=== PATIENT | female | born 1955 | race Caucasian/White ===

== ENCOUNTER 2016-09-25 14:08 | Emergency (ER) | payer BC ==
--- NOTE | 2016-09-25 14:17 | PDOC ---
[id number]: Right knee pain The patient is a 61 year old female with no pertinent past medical history other than a possible right knee arthroscopy, who presents to the emergency department with a complaint of right knee pain since yesterday afternoon. Patient was leaning into her vehicle to grab groceries when she felt her knee lock, followed by feeling and hearing a pop coming from her right knee. Patient was able to ambulate afterwards but states that there was pain with weight bearing and use of stairs. Patient reports that her knee had became swollen later that evening. Patient rested, elevated and iced her knee with some improvement to the swelling. Patient continues to endorse pain with range of motion and weight bearing. Pain is relieved with rest. Patient denies taking any medications for pain. Denies numbness or tingling in the lower right extremity. Denies other joint pains or injuries. Surgery: Hysterectomy for fibroids, Patient is not on any daily medications Denies allergies to medications PCP: Polo Brewer: Office: [facility]. Service: <Ramos Riley - Last Filed: 09/25/16 15:26> <Alvino Boyd - Last Filed: 09/25/16 16:08> - General Chief Complaint: Injury Stated Complaint: RT KNEE PAIN Time Seen by Provider: 09/25/16 14:17 Past History <Ramos Riley - Last Filed: 09/25/16 15:26> - Psycho/Social/Smoking Cessation Hx Suicidal Ideation: No Smoking History: Never smoked Hx Alcohol Use: (occasional) <Alvino Boyd - Last Filed: 09/25/16 16:08> - Past Medical History Allergies/Adverse Reactions: Allergies Allergy/AdvReac Type Severity Reaction Status Date / Time No Known Drug Allergies Allergy Verified 09/25/16 14:09 Home Medications: Ambulatory Orders NK [No Known Home Medication] 09/25/16 Review of Systems - Review of Systems Able to Perform ROS?: Yes Comments:: 09/25/16 15:17 CONSTITUTIONAL: Absent: Fever, Chills, Diaphoresis, Generalized Weakness, Malaise, Loss of Appetite HEENT: Absent: Rhinorrhea, Nasal Congestion, Throat Pain, Throat Swelling, Difficulty Swallowing, Mouth Swelling, Ear Pain, Eye Pain, Visual Changes CARDIOVASCULAR: Absent: Chest Pain, Syncope, Palpitations, Irregular Heart Rate, Lightheadedness , Peripheral Edema MUSCULOSKELETAL: Present: Right knee pain, right knee swelling Absent: Myalgia, Back pain, Neck Pain SKIN: Absent: Rash, Itching, Pallor Is the patient limited Tamazight proficient: No <Ramos Riley - Last Filed: 09/25/16 15:26> *Physical Exam - Vital Signs Last Vital Signs Temp Pulse Resp BP Pulse Ox 98.5 F 91 H 18 134/82 96 09/25/16 14:08 09/25/16 14:08 09/25/16 14:08 09/25/16 14:08 09/25/16 14:08 - Physical Exam Comments: 09/25/16 15:18 GENERAL: The patient is awake, alert, and fully oriented, in no acute distress. HEAD: Normal with no signs of trauma. EYES: Pupils equal, round and reactive to light, extraocular movements intact, sclera anicteric, conjunctiva clear. EXTREMITIES: Right knee: suprapatellar tenderness with mild local swelling Positive lateral tenderness. Patient was able to flex to 30 degrees, limited by pain. No ligament laxity x4 Remainder of extremities show normal range of motion, no edema. Sensation intact. Circulation intact. NEUROLOGICAL: Normal speech, normal gait. PSYCH: Normal mood, normal affect. SKIN: Warm, Dry, normal turgor, no rashes or lesions noted. <Ramos Riley - Last Filed: 09/25/16 15:26> - Vital Signs Last Vital Signs Temp Pulse Resp BP Pulse Ox 98.5 F 91 H 18 134/82 96 09/25/16 14:08 09/25/16 14:08 09/25/16 14:08 09/25/16 14:08 09/25/16 14:08 <Alvino Boyd - Last Filed: 09/25/16 16:08> ED Treatment Course - RADIOLOGY Radiology Studies Ordered: 09/25/16 15:18 RAD/KNEE 2 POS-RIGHT AP and lateral views reveal degenerative changes but no sign of fracture, subluxation or bone destruction. If symptoms persist, further imaging and orthopedic consultation may be of help. Reported by Richie Pino <Ramos Riley - Last Filed: 09/25/16 15:26> Medical Decision Making - Medical Decision Making 09/25/16 16:06 Patient presents after twisting her right knee yesterday. On examination, there is some suprapatellar swelling and tenderness. There is also some lateral ligamentous tenderness. Range of motion is limited due to pain. The patient is able to flex to 30. There is no ligament laxity 4. X-rays of the right knee show no acute fracture or dislocation on my review or by radiology. Impression: Right knee sprain Plan: Rest, ice packs, elevation, Cecilio wrap applied by me in the ED, right knee immobilizer provided and applied in the ED, and patient will follow-up with her orthopedic surgeon Dr. Salinas this coming week. She has Advil and Aleve at home for use as needed for pain. 09/25/16 16:08 The scribe's documentation has been prepared under my direction and personally reviewed by me in its entirety. I have confirmed that the note above accurately reflects all work, treatment, procedures, and medical decision- making performed by me. <Alvino Boyd - Last Filed: 09/25/16 16:08> *DC/Admit/Observation/Transfer - Attestations Scribe Attestion: 09/25/16 15:18 Documentation prepared by Ramos Riley, acting as medical office specialist for Alvino Boyd MD <Ramos Riley - Last Filed: 09/25/16 15:26> - Discharge Dispostion Admit: No <Alvino Boyd - Last Filed: 09/25/16 16:08> Diagnosis at time of Disposition: Right knee sprain Qualifiers: Encounter type: initial encounter Involved ligament of knee: unspecified ligament Qualified Code(s): S83.91XA - Sprain of unspecified site of right knee , initial encounter - Discharge Dispostion Disposition: HOME Condition at time of disposition: Stable - Referrals Referrals: Lawson Salinas MD [Staff Physician] - - Patient Instructions Printed Discharge Instructions: DI for Knee Sprain Additional Instructions: You were evaluated today for a right knee injury. The x-ray shows no broken bones. Your diagnosis is a sprain of the ligaments of the right knee. We advised that you rest the knee. Use the Cecilio bandage during the day and take it off at night. Elevate the knee on a pillow to help reduce the swelling. Apply an ice pack for 30 minutes every couple of hours for the first 2 days to help reduce the swelling and pain. Follow-up with Dr. Salinas, orthopedic surgeon, this coming week. Take Advil or Aleve as needed for pain. Return to the emergency department for any severe or progressive symptoms. - Post Discharge Activity Work/School Note: Back to Work
[2016-09-25 14:43] VITALS: BP 134/82; PULSE 91; TEMP 98.5; BMI 35.6
== END 2016-09-25 15:40 | disposition home or self-care (01) ==
LOC: FER 14:08
DX: S83.91XA Sprain of unspecified site of right knee, initial encounter (principal); X58.XXXA Exposure to other specified factors, initial encounter; Y93.89 Activity, other specified; Y92.9 Unspecified place or not applicable
CPT/HCPCS: 73560-TC-RT; 99283-25